=== PATIENT | male | born 1945 | race Two or more races ===

== ENCOUNTER 2017-12-22 11:05 | Emergency (ER) | payer OTHER ==
[2017-12-22 11:32] VITALS: BP 115/53; PULSE 66; TEMP 98.7; BMI 22.3
--- NOTE | 2017-12-22 13:20 | PDOC ---
History of Present Illness - General Chief Complaint: Cold Symptoms Stated Complaint: HEADACHE, FEVER Time Seen by Provider: 12/22/17 12:56 History Source: Patient Exam Limitations: No Limitations - History of Present Illness Initial Comments: 12/22/17 13:13 This 72-year-old male without significant past medical history presents to emergency department with 1 week of productive cough, generalized weakness and a fever which started 3 days ago. Patient has been taking TheraFlu with some relief of his symptoms. Patient now notes he is having a bitemporal headache with coughing. Denies abdominal pain, chest pain, shortness of breath, nausea, vomiting, dizziness. Past History - Past Medical History Allergies/Adverse Reactions: Allergies Allergy/AdvReac Type Severity Reaction Status Date / Time No Known Allergies Allergy Verified 12/22/17 11:29 Home Medications: Ambulatory Orders NK [No Known Home Medication] 12/22/17 COPD: No Other medical history: DENIES - Surgical History Abdominal Surgery: Yes (ULCER) - Suicide/Smoking/Psychosocial Hx Smoking History: Never smoked Review of Systems - Review of Systems Able to Perform ROS?: Yes Is the patient limited Maltese proficient: No Constitutional: Yes: See HPI HEENTM: Yes: See HPI Respiratory: Yes: See HPI Cardiac (ROS): No: Symptoms Reported ABD/GI: No: Symptoms Reported : No: Symptoms Reported Musculoskeletal: No: Symptoms Reported Integumentary: No: Symptoms Reported Neurological: No: Symptoms reported *Physical Exam - Vital Signs Last Vital Signs Temp Pulse Resp BP Pulse Ox 98.7 F 66 19 115/53 97 12/22/17 11:29 12/22/17 11:29 12/22/17 11:29 12/22/17 11:29 12/22/17 11:29 - Physical Exam General Appearance: Yes: Appropriately Dressed. No: Apparent Distress HEENT: positive: Normal ENT Inspection Neck: positive: Trachea midline, Supple Respiratory/Chest: positive: Lungs Clear, Normal Breath Sounds. negative: Respiratory Distress, Accessory Muscle Use Cardiovascular: positive: Regular Rhythm, Regular Rate. negative: Murmur Gastrointestinal/Abdominal: positive: Normal Bowel Sounds, Soft. negative: Tender Musculoskeletal: positive: Normal Inspection. negative: CVA Tenderness Extremity: positive: Normal Inspection Integumentary: positive: Normal Color, Dry, Warm Neurologic: positive: Alert, Normal Response, Motor Strength 5/5 ED Treatment Course - RADIOLOGY Radiology Studies Ordered: Category Date Time Status CHEST PA & LAT [RAD] Stat Radiology 12/22/17 13:12 Ordered Medical Decision Making - Medical Decision Making 12/22/17 13:20 A/P: 72-year-old male without medical history with 1 week of cough generalized weakness with fevers 3 days. Oropharynx clear without erythema or exudates. Cobblestoning noted in posterior pharynx Lungs clear to auscultation bilaterally. RRR. S1 and S2 present. No murmur, rub or gallop. Pneumonia versus URI Chest x-ray, reassess 12/22/17 13:35 Chest x-ray as read by me angles clear. No focal consolidations or infiltrates noted. Cardiac silhouette within normal limits. Visualized osseous structures intact Upper respiratory infection. Given chest x-ray and will treat the patient with conservative symptomatic treatment of upper respiratory infection. *DC/Admit/Observation/Transfer Diagnosis at time of Disposition: Upper respiratory infection, viral - Discharge Dispostion Disposition: HOME Condition at time of disposition: Stable Admit: No - Referrals Referrals: ON STAFF,NOT [Primary Care Provider] - - Patient Instructions Printed Discharge Instructions: DI for Viral Upper Respiratory Infection -- Adult Additional Instructions: Rest, drink lots of fluids: Teas, water, soups, Pedialyte Saltwater gargles Steamy showers/seem to face break up mucus Avoid contact with others until fevers and cough resolved Lots of handwashing and good hygiene Continue [id number] medications for symptomatic relief Tylenol or Motrin for fever and pain Followup with private physician in one to 2 days as needed Return to emergency department for worsened symptoms, fevers, dehydration - Post Discharge Activity
== END 2017-12-22 13:41 | disposition home or self-care (01) ==
LOC: JERFT 11:05
DX: J06.9 Acute upper respiratory infection, unspecified (principal)
CPT/HCPCS: 71046-TC-FY; 99281-25